=== PATIENT | female | born 2000 | race African-American/Black ===

== ENCOUNTER 2019-05-23 21:12 | Emergency (ER) | payer OTHER ==
[~2019-05-23] VITALS: Ht 167.6 cm; Wt 56.7 kg
[2019-05-23] MEDS ORDERED: NAPROXEN375 MG PO (23:25)
[2019-05-23] MEDS ORDERED: PROAIR RESPICL90 MCG INH (23:26)
[2019-05-23] MEDS ORDERED: METHOCARBAMOL500 M2 PO (23:26)
[2019-05-23] MEDS ORDERED: DEPRESSION MED (23:27)
[2019-05-23] MEDS ORDERED: ANXIETY MED (23:27)
[2019-05-24] MEDS ORDERED: NORCO 5-325 TA1 EAC1 PO (02:52)
[2019-05-24 03:12] VITALS: BP 133/75
== END 2019-05-24 03:13 | disposition home or self-care (01) ==
LOC: ER 21:12
DX: S09.8XXA Other specified injuries of head, initial encounter (principal); S39.012A Strain of muscle, fascia and tendon of lower back, initial encounter; S80.01XA Contusion of right knee, initial encounter; J45.909 Unspecified asthma, uncomplicated; F17.210 Nicotine dependence, cigarettes, uncomplicated; V89.2XXA Person injured in unspecified motor-vehicle accident, traffic, initial encounter; Y93.89 Activity, other specified; Y92.89 Other specified places as the place of occurrence of the external cause; Y99.8 Other external cause status